=== PATIENT | female | born 1995 | race Caucasian/White ===

== ENCOUNTER 2025-07-02 08:49 | Emergency (ER) | payer MEDICAID, OTHER ==
[~2025-07-02] VITALS: Ht 170.2 cm; Wt 58.0 kg
[2025-07-02 09:05] VITALS: TEMP 36.4; O2SAT 98
[2025-07-02 09:38] LABS: BASOPHILS % 0.2 % (0.0-2.0); EOSINOPHILS % 6.2 % (0.0-5.0); HEMATOCRIT. 37.4 % (36.0-48.0); HEMOGLOBIN. 12.6 g/dL (12.0-16.0); LYMPHOCYTES % 34.0 % (20.0-50.0); MEAN PLATELET VOLUME 7.9 fl (7.4-10.4); MONOCYTES % 6.2 % (2.0-8.0); NEUTROPHILS % 53.4 % (40.0-76.0); PLATELET 207 x1000/uL (130-400); RED BLOOD CELL COUNT 4.12 mill/uL (4.2-5.4); RED CELL DISTRIBUTION WIDTH 13.3 % (11.6-14.6)
[2025-07-02 09:55] LABS: CREATININE 0.8 mg/dL (0.6-1.0); UREA NITROGEN BLOOD 9 mg/dL (9-23)
[2025-07-02 11:39] VITALS: BP 110/65; PULSE 81; RESP 16; O2SAT 99
== END 2025-07-02 11:44 | disposition home or self-care (01) ==
LOC: ER 08:49
DX: R42 Dizziness and giddiness (principal); R20.0 Anesthesia of skin
CPT/HCPCS: 36415; 80048; 85025; 93971; 99284